=== PATIENT | female | born 1980 | race Caucasian/White ===

== ENCOUNTER → 2019-08-12 16:23 | Outpatient (CLI) | payer BC, SELFPAY ==
[2014-05-02 19:15] VITALS: BMI 25.0
[2019-08-12 18:21] LABS: Free T3 2.7 pg/mL (2.18-3.98); T4 Free Direct 0.79 ng/dL (0.76-1.46); Thyroid Stim Hormone (TSH) 2.62 uIU/mL (0.358-3.74)
== END ==
PROVIDERS: Family Provider Family Medicine; PCP Family Medicine; Referring Provider Family Medicine; Visit Provider Family Medicine
DX: E03.9 Hypothyroidism, unspecified (principal)
CPT/HCPCS: 36415; 84439; 84443; 84481

== ENCOUNTER → 2019-10-15 16:12 | Outpatient (CLI) | payer BC, SELFPAY ==
[2019-10-15 17:36] LABS: T4 Free Direct 0.84 ng/dL (0.76-1.46); Thyroid Stim Hormone (TSH) 2.79 uIU/mL (0.358-3.74)
== END ==
LOC: LAB.FUTURE 16:12 → BFHLAB 10-17 08:25
PROVIDERS: Family Provider Family Medicine; PCP Family Medicine; Visit Provider Family Medicine
DX: E03.9 Hypothyroidism, unspecified (principal)
CPT/HCPCS: 36415; 84439; 84443

== ENCOUNTER → 2022-07-03 | Outpatient (CLI) | payer OTHER, SELFPAY ==
[2022-07-03 18:07] LABS: T4 Free Direct 0.87 ng/dL (0.76-1.46); Thyroid Stim Hormone (TSH) 3.52 uIU/mL (0.358-3.74)
== END | disposition home or self-care (01) ==
PROVIDERS: PCP Family Medicine; Referring Provider Family Medicine; Visit Provider Family Medicine
DX: E03.9 Hypothyroidism, unspecified (principal)
CPT/HCPCS: 36415; 84439; 84443

== ENCOUNTER → 2023-05-31 | Outpatient (CLI) | payer OTHER, SELFPAY ==
--- NOTE | 2023-05-31 14:27 | RAD_ITS ---
STUDY: X-RAY - RIGHT ANKLE REASON FOR EXAM: Female, 43 years old. Lateral ankle pain. TECHNIQUE: 3 view(s) of the ankle. COMPARISON: None. FINDINGS: Normal visualized distal tibia and fibula. Normal medial and lateral malleoli. Normal tibiotalar articulation and ankle mortise. Inferior calcaneal spur. The visualized subtalar, talonavicular, calcaneocuboid and tarsal articulations are normal. Os trigonum, a normal variant. Minimal lateral soft tissue swelling. RAD/Ankle min 3 Views IMPRESSION: Calcaneal spur with lateral soft tissue swelling. No acute abnormality or erosive changes. Electronically Signed: Weston Gallo MD at 11:10 EDT ,
== END | disposition home or self-care (01) ==
PROVIDERS: PCP Family Medicine; Referring Provider Family Medicine; Visit Provider Family Medicine
DX: M25.571 Pain in right ankle and joints of right foot (principal)
CPT/HCPCS: 73610

== ENCOUNTER → 2024-05-26 | Outpatient (CLI) | payer OTHER, SELFPAY ==
--- NOTE | 2024-05-26 16:48 | RAD_ITS ---
EXAM: XR RIGHT ANKLE COMPLETE, 3 OR MORE VIEWS CLINICAL INDICATION: HEEL PAIN TECHNIQUE: Frontal, lateral and oblique views of the right ankle. COMPARISON: Foot radiograph on the same date. Ankle radiographs, 05/31/2023. FINDINGS: BONES/JOINTS: Prominent calcaneal spur. No acute fracture. No subluxation. Normal alignment. Preservation of the joint space. No sclerotic or destructive changes observed. SOFT TISSUES: No significant abnormality. No soft tissue swelling or gas. No radiopaque foreign body. RAD/Ankle min 3 Views IMPRESSION: Prominent calcaneal spur. No acute osseous abnormalities. Electronically Signed: Jackson Wilcox DO at 23:50 EDT ,
--- NOTE | 2024-05-26 16:48 | RAD_ITS ---
EXAM: XR RIGHT FOOT COMPLETE, 3 OR MORE VIEWS CLINICAL INDICATION: HEEL PAIN TECHNIQUE: Frontal, lateral and oblique views of the right foot. COMPARISON: Ankle on the same date. FINDINGS: BONES/JOINTS: Prominent calcaneal spur. No acute fracture. No subluxation. Normal alignment. Preservation of the joint space. No sclerotic or destructive changes observed. SOFT TISSUES: No significant abnormality. No soft tissue swelling or gas. No radiopaque foreign body. RAD/Foot min 3 Views IMPRESSION: Prominent calcaneal spur. No acute findings. Electronically Signed: Jackson Wilcox DO at 23:50 EDT ,
== END | disposition home or self-care (01) ==
LOC: MTRAD 16:46
PROVIDERS: PCP Family Medicine; Referring Provider Family Medicine; Visit Provider Family Medicine
DX: M79.671 Pain in right foot (principal)
CPT/HCPCS: 73610; 73630

== ENCOUNTER → 2024-11-06 | Outpatient (CLI) | payer OTHER, SELFPAY ==
[2024-11-06 18:49] LABS: Free T3 2.6 pg/mL (2.18-3.98); T4 Free Direct 0.79 ng/dL (0.76-1.46)
== END | disposition home or self-care (01) ==
LOC: BFHLAB 16:10
PROVIDERS: PCP Family Medicine; Visit Provider Family Medicine
DX: E03.9 Hypothyroidism, unspecified (principal)
CPT/HCPCS: 36415; 84439; 84443; 84481

== ENCOUNTER → 2024-12-15 | Outpatient (CLI) | payer OTHER, SELFPAY ==
--- NOTE | 2024-12-15 12:53 | RAD_ITS ---
PROCEDURE: ABDOMEN SINGLE VIEW REASON FOR EXAM: Hematuria, rule out stone TECHNIQUE: Single view abdomen. COMPARISON: None FINDINGS: Small faint density at the upper pole aspect of the left renal shadow may represent renal stone although there is bowel superimposed at this area. No pelvic calcification identified. Intrauterine device appears within limits. Gas and stool seen within the colon. Overall paucity of small bowel gas. Visualized osseous structures appear within limits. RAD/Abdomen Single View IMPRESSION: Small faint density at the upper pole aspect of the left renal shadow may repre sent renal stone although there is bowel superimposed at this area. No pelvic calcification identified. . Reading Location: [id number]
== END | disposition home or self-care (01) ==
PROVIDERS: PCP Family Medicine; Referring Provider Family Medicine; Visit Provider Family Medicine
DX: R31.9 Hematuria, unspecified (principal)
CPT/HCPCS: 74018

== ENCOUNTER → 2025-01-28 | Outpatient (CLI) | payer OTHER, SELFPAY ==
--- NOTE | 2025-01-28 18:35 | CT_ITS ---
PROCEDURE: ABDOMEN/PELVIS WITHOUT CONT 01/28/2025 REASON FOR EXAM: KIDNEY STONE TECHNIQUE: Abdomen and pelvis CT without intravenous contrast. Noncontrast technique limits evaluation of the abdominal and pelvic viscera. Coronal and Sagittal reconstruction series were provided. One or more dose reduction techniques were used (e.g., Automated exposure control, adjustment of the mA and/or kV according to patient size, use of iterative reconstruction technique). COMPARISON: 12/15/2024 FINDINGS: No acute findings in the lung bases. A couple right hepatic hypodense lesions which are too small to characterize. Spleen, pancreas and adrenal glands are intact. Gallbladder is satisfactory. No significant biliary ductal dilation. 4 mm nonobstructing calculi in both kidneys. No hydronephrosis. Urinary bladder is underdistended but grossly intact. Uterus is present and contains an IUD. Large cystic mass within the pelvis with at least 1 dominant septation and some septal thickening measuring 13.9 x 14.8 x 9.6 cm (AP, TV and CC dimensions). No bowel obstruction, focal bowel wall thickening or significant perienteric inflammation. Normal appendix. No pelvic free fluid. No free air. No abdominal aortic aneurysm. Multiple mildly prominent retroperitoneal lymph nodes, 1 of the largest measuring 9 x 13 mm. Superficial soft tissues are within normal limits. No acute osseous abnormality. CT/Abdomen/Pelvis without Cont IMPRESSION: 1. Bilateral nephrolithiasis. No obstructive uropathy. 2. Large cystic mass within the pelvis as detailed above. Malignancy not exclu ded. Recommend further evaluation with ultrasound and contrast-enhanced MRI. 3. Mildly prominent nonspecific retroperitoneal lymph nodes. Reading Location: [facility]
== END | disposition home or self-care (01) ==
LOC: CT 18:39
PROVIDERS: PCP Family Medicine; Referring Provider Family Medicine; Visit Provider Family Medicine
DX: N20.0 Calculus of kidney (principal)
CPT/HCPCS: 74176